=== PATIENT | male | born 1970 | race Caucasian/White ===

== ENCOUNTER 2018-03-16 11:36 | Emergency (ER) | payer MEDICARE, MEDICAID ==
[~2018-03-16] VITALS: Ht 172.7 cm; Wt 83.8 kg
[2018-03-16] MEDS ORDERED: SODIUM CHLORIDE FLUSH 10ML SYR IVF ONE (12:00)
[2018-03-16] MEDS ORDERED: ONDANSETRON 2MG/ML, 2ML IVPush ONE (12:00)
[2018-03-16] MEDS ORDERED: ONDANSETRON 2MG/ML, 2ML ONE (12:22)
[2018-03-16] MEDS ORDERED: HYDROmorphone 2 MG/ML, 1ML ONE ×2 (12:22→13:01)
[2018-03-16 12:25] LABS: BASOPHILS # (AUTO) 0.04 x10^3/uL (0-0.1); BASOPHILS % (AUTO) 1 % (0-1); EOSINOPHILS % (AUTO) 6 % (1-7); LYMPHOCYTES % (AUTO) 37 % (22-44); MD NO; MEAN CORPUSCULAR HEMOGLOBIN 32.2 pg (27.5-34.5); MEAN CORPUSCULAR HGB CONC 34.2 g/dL (33.2-36.2); MEAN CORPUSCULAR VOLUME 94.2 fL (81-97); MEAN PLATELET VOLUME 8.4 fL (7.4-10.4); MONOCYTES # (AUTO) 0.73 x10^3/uL (0.2-0.8); MONOCYTES % (AUTO) 9 % (2-9); NEUTROPHILS # (AUTO) 3.79 x10^3/uL (1.8-6.8); NEUTROPHILS % (AUTO) 48 % (42-75); PLATELET COUNT 246 x10^3/uL (130-400); RED BLOOD COUNT 5.01 x10^6/uL (4.38-5.82); RED CELL DISTRIBUTION WIDTH 13.8 % (9.4-14.8)
[2018-03-16] MEDS: HYDROmorphone 2 MG/ML, 1ML IVPush PRN ×2 (12:25→13:07)
[2018-03-16 12:34] LABS: ALANINE AMINOTRANSFERASE 26 U/L (12-78); ALBUMIN 3.9 g/dL (3.4-5.0); ANION GAP 7 mmol/L (5-15); CALCIUM 8.5 mg/dL (8.5-10.1); CHLORIDE 106 mmol/L (98-107); CREATININE 0.92 mg/dL (0.7-1.3)
[2018-03-16 12:36] LABS: ALKALINE PHOSPHATASE 81 U/L (45-117); BILIRUBIN,TOTAL 0.4 mg/dL (0.2-1.0); TOTAL PROTEIN 7.4 g/dL (6.4-8.2)
[2018-03-16] MEDS ORDERED: OMNIPAQUE 350 MG/ML, 100ML BOTTLE ONE (13:09)
[2018-03-16 13:16] LABS: MICROSCOPIC NOT IND
[2018-03-16 13:23] LABS: CULTURE INDICATED? NO
[2018-03-16 13:51] VITALS: BP 129/75
== END 2018-03-16 13:53 | disposition home or self-care (01) ==
LOC: ED 13:44
DX: R10.84 Generalized abdominal pain (principal); R19.7 Diarrhea, unspecified; F17.200 Nicotine dependence, unspecified, uncomplicated
CPT/HCPCS: 36415; 74177; 80053; 81003; 83690; 85025; 96374; 96375; 96376; 99284; J1170; J2405; Q9967

== ENCOUNTER 2018-04-28 01:39 | Emergency (ER) | payer MEDICARE, MEDICAID ==
[~2018-04-28] VITALS: Ht 170.2 cm; Wt 78.5 kg
[2018-04-28 01:40] VITALS: BP 138/85
[2018-04-28] MEDS ORDERED: KETOROLAC 30 MG/1 ML IM ONE (02:00)
[2018-04-28] MEDS ORDERED: ACETAMINOPHEN 325 MG TABLET PO ONE (02:00)
[2018-04-28] MEDS ORDERED: ACETAMINOPHEN 325 MG TABLET ONE (02:49)
[2018-04-28] MEDS ORDERED: KETOROLAC 30 MG/1 ML ONE (02:49)
--- NOTE | 2018-04-28 02:59 | NUR ---
DR. HDZ AT BEDSIDE UPDATING PT ON TEST RESULTS. PT MEDICATED PER EMAR. 5 RIGHTS ADDRESSED.
--- NOTE | 2018-04-28 03:08 | NUR ---
PT PROVIDED WITH DISCHARGE PAPERWORK. PT ASKED TO GET DRESSED. WHEN THIS RN CAME BACK INTO THE ROOM, THE PT WAS STILL LYING ON GURNEY SLEEPING. PT ASKED TO GET DRESSED AGAIN. PT STATES "I DON'T WANT TO LEAVE". PT WAS ADVISED HE HAS BEEN DISCHARGED AND I WILL BE BACK IN MINUTES TO WALK HIM TO THE DISCHARGE AREA. IF HE IS STILL NOT READY AT THAT TIME, SECURITY WILL BE CALLED TO ESCORT HIM OUT.
--- NOTE | 2018-04-28 03:18 | NUR ---
PT AMBULATORY OUT OF ER WITHOUT ASSISTANCE.
== END 2018-04-28 03:20 | disposition home or self-care (01) ==
LOC: ED 02:30
DX: S80.12XA Contusion of left lower leg, initial encounter (principal); S80.11XA Contusion of right lower leg, initial encounter; M54.9 Dorsalgia, unspecified; F17.200 Nicotine dependence, unspecified, uncomplicated; Y04.0XXA Assault by unarmed brawl or fight, initial encounter; Y93.89 Activity, other specified; Y92.89 Other specified places as the place of occurrence of the external cause; Y99.8 Other external cause status
CPT/HCPCS: 72110; 96372; 99283; J1885

== ENCOUNTER 2020-12-29 00:25 | Emergency (ER) | payer MEDICAID, MEDICARE ==
[~2020-12-29] VITALS: Ht 172.7 cm; Wt 65.0 kg
[2020-12-29] MEDS ORDERED: LIDOCAINE 1%, 10ML INFIL ONE (01:00)
[2020-12-29 03:10] VITALS: BP 164/88
--- NOTE | 2020-12-29 06:33 | NUR ---
CALLED FOR ROOM, NO ANSWER
--- NOTE | 2020-12-29 07:32 | NUR ---
NO ANS X 2
--- NOTE | 2020-12-29 07:43 | NUR ---
NO ANS X 3
== END 2020-12-29 07:45 | disposition left against medical advice (07) ==
LOC: ED 07:39
DX: S01.01XA Laceration without foreign body of scalp, initial encounter (principal); X58.XXXA Exposure to other specified factors, initial encounter; Y93.89 Activity, other specified; Y92.89 Other specified places as the place of occurrence of the external cause; Y99.8 Other external cause status
CPT/HCPCS: 70450; 99284